=== PATIENT | female | born 1945 ===

== ENCOUNTER 2020-03-01 11:15 | Inpatient (IN) | payer OTHER ==
[~2020-03-01] VITALS: Ht 154.9 cm; Wt 51.3 kg
[2020-03-01] MEDS ORDERED: AMLODIPINE PO (15:10)
[2020-03-01] MEDS ORDERED: ZETIA10 MG PO (15:10)
[2020-03-01] MEDS ORDERED: ATORVASTATIN CA20 MG PO (15:10)
[2020-03-01] MEDS ORDERED: FOLIC PO (15:11)
[2020-03-01] MEDS ORDERED: ZESTRIL2.5 MG PO (15:11)
[2020-03-01] MEDS ORDERED: SULFASALAZINE500 M1 PO (15:12)
[2020-03-09] MEDS ORDERED: NORVASC2.5 MG (08:38)
[2020-03-09] MEDS ORDERED: FOLIC ACID1 MG (08:38)
[2020-03-09] MEDS ORDERED: VITAMIN D325 MC2 (08:39)
[2020-03-09] MEDS ORDERED: [UNRECOGNIZED DRUG - SUPPLY] (08:39)
== END 2020-03-10 20:15 | disposition home or self-care (01) | DRG 331 ==
LOC: O/R 03-08 06:20 → SURH 03-08 06:20 → O/R 03-08 11:15 → SURH 03-09 16:31
PROVIDERS: ADMIT Colon & Rectal Surgery; ATTEND Colon & Rectal Surgery
PROC: 07BC4ZX Excision of Pelvis Lymphatic, Percutaneous Endoscopic Approach, Diagnostic (ICD-10-PCS; 2020-03-08)
PROC: 0DTJ4ZZ Resection of Appendix, Percutaneous Endoscopic Approach (ICD-10-PCS; 2020-03-08)
PROC: 0DTK4ZZ Resection of Ascending Colon, Percutaneous Endoscopic Approach (ICD-10-PCS; principal; 2020-03-08 15:45)
DX: C18.2 Malignant neoplasm of ascending colon (principal); D50.9 Iron deficiency anemia, unspecified; I11.9 Hypertensive heart disease without heart failure

== ENCOUNTER 2021-03-10 07:13 | Day surgery (SDC) | payer OTHER ==
[~2021-03-10 07:13] MED LIST: AMLODIPINE PO; ATORVASTATIN CA20 MG PO; FOLIC ACID1 MG; FOLIC PO; NORVASC2.5 MG; SULFASALAZINE500 M1 PO; VITAMIN D325 MC2; ZESTRIL2.5 MG PO; ZETIA10 MG PO; [UNRECOGNIZED DRUG - SUPPLY]
== END 2021-03-10 11:00 | disposition home or self-care (01) ==
LOC: AMB-ENDOS 07:13
PROVIDERS: ATTEND Colon & Rectal Surgery
DX: K62.89 Other specified diseases of anus and rectum (principal); K64.0 First degree hemorrhoids; Z20.822 Contact with and (suspected) exposure to COVID-19

== ENCOUNTER 2024-12-09 19:04 | Inpatient (IN) | payer OTHER ==
[~2024-12-09] VITALS: Ht 165.1 cm; Wt 56.7 kg
[2024-12-09] MEDS ORDERED: FAMOTIDINE/PF 20 MG/2 ML VIAL IV STA (19:55)
[2024-12-09] MEDS ORDERED: 0.9 % SODIUM CHLORIDE 1,000 ML IV STA (19:55)
[2024-12-09] MEDS ORDERED: ONDANSETRON HCL 2 MG/ML VIAL IV STA (19:55)
[2024-12-09] MEDS ORDERED: PIPERACILLIN/TAZOBACTAM SODIUM 3.375 GM VIAL IV ONE ×2 (20:00→20:21)
[2024-12-09] MEDS ORDERED: ONDANSETRON HCL 2 MG/ML VIAL ONE (20:21)
[2024-12-09] MEDS ORDERED: FAMOTIDINE/PF 20 MG/2 ML VIAL ONE (20:22)
[2024-12-09] MEDS ORDERED: PIPERACILLIN/TAZOBACTAM SODIUM 3.375 GM in 0.9 % SODIUM CHLORIDE 100 ML IV SCH (20:54)
[2024-12-09] MEDS ORDERED: PANTOPRAZOLE SODIUM 40 MG in 0.9 % SODIUM CHLORIDE 8 ML IV PUSH SCH (20:59)
[2024-12-09] MEDS ORDERED: ONDANSETRON HCL 4 MG in 0.9 % SODIUM CHLORIDE 50 ML IV PRN (21:00)
[2024-12-09] MEDS ORDERED: RINGERS SOLUTION,LACTATED 1,000 ML IV SCH (21:00)
[2024-12-09] MEDS ORDERED: AMLODIPINE BESYLATE 2.5 MG TABLET PO SCH (21:03)
[2024-12-09] MEDS ORDERED: LISINOPRIL 5 MG TABLET PO SCH (21:03)
[2024-12-09] MEDS ORDERED: 0.9 % SODIUM CHLORIDE 1,000 ML IV SCH (21:15)
[2024-12-09 21:16] VITALS: BP 165/71
[2024-12-09 21:21] LABS: BASO % 0.4 % (0.1-1.2); EOS # 0.08 (0.04-0.54); EOS % 1.0 % (0.7-7.0); LYMPH # 1.78 (1.18-3.74); LYMPH % 22.1 % (19.3-53.1); MEAN PLATELET VOLUME 10.20 fl (9.4-12.4); MONO # 0.55 (0.24-0.82); MONO % 6.8 % (4.7-12.5); NEUT # 5.61 (1.56-6.13); NEUT % 69.5 % (34.0-71.1); RED CELL DISTRIBUTION WIDTH 13.3 % (11.6-14.4)
[2024-12-09 21:28] LABS: ERYTHROCYTE SEDIMENTATION RATE 6 mm/hr (0-30)
[2024-12-09 21:43] LABS: INR 1.07
[2024-12-09 21:47] LABS: ALT/SGPT 24.0 U/L (12-78); AST/SGOT 20.0 U/L (15-37); BILIRUBIN TOTAL 0.93 mg/dL (0.3-1.2); BILIRUBIN,CONJUGATED 0.27 mg/dL (0.0-0.2); BUN CREA RATIO 19.0 (7.0-25.0); CREATININE SERUM 0.72 mg/dL (0.55-1.02); GFR 78.54; GLUCOSE FASTING 88.0 mg/dL (65-100); OSMOLALITY SERUM 287.0 MOSM/KG (275-295)
[2024-12-09 22:08] LABS: URINE APPEARANCE Clear; URINE BILIRRUBIN Negative (NEGATIVE); URINE BLOOD Moderate; URINE COLOR Dark Yellow; URINE GLUCOSE Negative (NEGATIVE); URINE KETONE 15 (NEGATIVE); URINE LEUKOCYTE Small; URINE NITRATE Negative; URINE PROTEIN 30 (NEGATIVE); URINE UROBILINOGEN 0.2 E.U./dl
[2024-12-09 22:11] LABS: URINE BACTERIA 199.1 uL (0.0-1933); URINE EPITHELIAL CELLS 14.6 uL (0.0-38.8); URINE RBC 68.0 uL (0.0-20.8)
[2024-12-09 22:20] VITALS: BP 131/65; O2SAT 96
[2024-12-09 22:20] LABS: URINE CAST 0.14 uL (0.0-1.40)
[2024-12-09 22:25] LABS: URINE MUCUS SCANT
[2024-12-09 22:26] LABS: URINE WBC 152.4 uL (0.0-23.2)
[2024-12-10 01:40] VITALS: BP 142/67; O2SAT 96
[2024-12-10 09:57] VITALS: BP 120/62; O2SAT 95
[2024-12-10] MEDS ORDERED: DIATRIZOATE MEGLUMINE, SODIUM 30 ML BOTTLE PO NR (14:15)
[2024-12-10 16:48] VITALS: BP 123/64; O2SAT 98
[2024-12-11 01:12] VITALS: BP 114/61; O2SAT 100
[2024-12-11 08:00] VITALS: BP 126/62; O2SAT 97
[2024-12-11] MEDS ORDERED: ENOXAPARIN SODIUM 40 MG/0.4 ML SYRINGE SUBCUTANEO SCH (09:00)
[2024-12-11 16:00] VITALS: BP 134/55; O2SAT 99
[2024-12-11] MEDS ORDERED: LACTOBACILLUS ACIDOPHILUS 1 CAP CAP PO SCH (17:00)
[2024-12-12 01:16] VITALS: BP 122/68; O2SAT 99
[2024-12-12 08:52] VITALS: BP 139/69; O2SAT 96
[2024-12-12] MEDS ORDERED: PANTOPRAZOLE SODIUM 40 MG TABLET.DR PO SCH (09:00)
== END 2024-12-12 18:46 | disposition home or self-care (01) | DRG 390 ==
LOC: ER 19:04 → SURH 21:00
PROVIDERS: General Practice; ADMIT Internal Medicine Geriatric Medicine; ATTEND Internal Medicine Geriatric Medicine
PROC: BW21YZZ Computerized Tomography (CT Scan) of Abdomen and Pelvis using Other Contrast (ICD-10-PCS; principal; 2024-12-10)
DX: K56.609 Unspecified intestinal obstruction, unspecified as to partial versus complete obstruction (principal); I10 Essential (primary) hypertension